=== PATIENT | female | born 1985 | race Two or more races ===

== ENCOUNTER 2020-04-14 13:08 | Outpatient (REF) | payer MEDICAID, SELFPAY | END 2020-04-14 13:09 | disposition home or self-care (01) | LOC: HO.LAB 13:08 | PROVIDERS: Visit Provider Internal Medicine | DX: Z20.828 Contact with and (suspected) exposure to other viral communicable diseases (principal) | CPT/HCPCS: C9803; U0003 ==

== ENCOUNTER 2024-06-27 11:56 | Outpatient (REF) | payer MEDICAID, SELFPAY ==
[2024-06-27 13:37] LABS: MANUAL DIFF FLAG NO
[2024-06-27 13:53] LABS: Basophils Percent Auto 0.3 % (0-2); Eosinophils Absolute Auto 0.3 X10*3/uL (0.0-0.4); Eosinophils Percent Auto 3.5 % (0-4); Hematocrit 34.8 % (37.0-47.0); Imm Gran Abs Auto 0.03 X10*3/uL (0.00-0.03); Imm Gran Pct Auto 0.4 % (0.0-0.4); Lymphocytes Absolute Auto 1.5 X10*3/uL (1.2-4.9); Lymphocytes Percent Auto 19.8 % (20-40); Mean Corpuscular HGB Conc 28.7 g/dl (31.0-35.0); Mean Corpuscular Hemoglobin 21.5 pg (27.0-33.0); Mean Corpuscular Volume 74.7 fL (80.0-98.0); Mean Platelet Volume 10.2 fL (9.4-12.3); Monocytes Absolute Auto 0.5 X10*3/uL (0.1-1.2); Monocytes Percent Auto 7.4 % (2-11); Neutrophils Percent Auto 68.6 % (45-73); Platelet Count 354 X10*3/uL (160-400); Red Blood Count 4.66 X10*6/uL (4.20-5.50); Red Cell Distribution Width 15.9 % (11.0-16.0); White Blood Count 7.3 X10*3/uL (4.8-10.8)
--- OUTSIDE RECORDS SUMMARY | 2024-06-27 14:15 | XMS_ITS | Clinical Summary ---
[facility] Organization [facility] Address [address] [place] [address] Care Team Providers Care Technical Training Specialist Name Role Phone Unavailable Primary Care Provider Unavailabl e Social History Tobacco Use Types Packs/Day Years Used Date Smoking Tobacco: Never Assessed Comments Unknown Sex and Gender Information Value Date Recorded Sex Assigned at Not on file Legal Sex Female 4:57 AM EST Gender Identity Not on file Sexual Orientation Not on file Plan of Treatment Health Maintenance Due Date Last Done Comments Breast Cancer Screening 1983 DTaP,Tdap,and Td Vaccines (1 - Tdap) 2002 Hepatitis B Vaccines (1 of 3 - 19+ 3-dose series) 2002 Cervical Cancer Screening: P ap Smear 02/05/2004 Depression Screening 04/02/2022 HIV Screening 04/02/2022 Hepatitis C Screening 04/02/2022 Social Influencers of Health Screening 04/02/2022 COVID-19 Vaccine (2023-2 5 season) 2023 Influenza Vaccine (#1) 2023 HIB Vaccines Aged Out No longer eligi ble based on patient's age to complete this topic HPV Vaccines Aged Out No longer eligi ble based on patient's age to complete this topic Hepatitis A Vaccines Aged Out No long er eligible based on patient's age to complete this topic IPV Vaccines Aged Out No longer eligi ble based on patient's age to complete this topic MMR Vaccines Aged Out No longer eligi ble based on patient's age to complete this topic Meningococcal ACWY Vaccine Aged Out N o longer eligible based on patient's age to complete this topic Meningococcal B Vacine Aged Out No lo nger eligible based on patient's age to complete this topic Pneumococcal Vaccine: Pediat rics (0 to 5 Years) and At-Risk Patients (6 to 64 Years) Aged Out No longer eligible b ased on patient's age to complete this topic RSV Immunization Patients Un carie 20 months Aged Out No longer eligible b ased on patient's age to complete this topic Varicella Vaccines Aged Out No longer eligible based on patient's age to complete this topic
--- OUTSIDE RECORDS SUMMARY | 2024-06-27 14:15 | XMS_ITS | Patient Health Record ---
Author Organization [facility] Address [address], [place] [id number] Care Team Providers Care Auto Service Dispatcher Name Role Phone [facility] Primary Care Provider Karis raulilable Jose Manuel Clemens Unavailable [phone] Reason For Referral No Information Plan Of Treatment No Information Insurance Providers Payer Name Payer Address Payer Phone Subscriber Number Group Number Insured Name Patient Relationship to Insured Coverage Start Date Coverage End Date [place] Medicaid Standard [address] [place] [address] [phone] Halina Martin Self - patient is the insured
--- OUTSIDE RECORDS SUMMARY | 2024-06-27 14:15 | XMS_ITS | Clinical Summary ---
Author Organization [facility] Address [address] [place] [address] Care Team Providers Care Insurance Sales Manager Name Role Phone Unavailable Primary Care Provider Unavailabl e Source Comments PLEASE NOTE, if this patient is a minor, it may be UNLAWFUL to discuss sensitive information that is contained in these records (such as FAMILY PLANNING, MENTAL HEALTH or SUBSTANCE ABUSE) with the minor patient's parent or other person without the patient's specific authorization.[facility] Allergies No known active allergies Medications ferrous sulfate 325 mg (65 mg iron) tabletIndication s:Iron deficiency anemia, unspecified iron deficiency anemia type Take 1 Tab by mouth 2 (two) times daily with a meal Twice every other day if stomach upset occurs 60 Tab 3 9 Active ibuprofen 600 mg tabletIndication s:Toothache Take 1 Tab by mouth 3 (three) times daily as needed for pain Take three times a day for 7 days after that as needed for pain 30 Tab 9 Active famotidine (PEPCID) 40 mg tabletIndication s:Heartburn Take 1 Tab by mouth once daily 30 Tab 2 9 Active polyethylene glycol 3350 17 gram/dose powderIndication s:Constipation, unspecified constipation type Take 17 g by mouth once daily 510 g 1 9 Active cholecalciferol, vitamin D3, 50 mcg (2,000 unit) capsuleIndicatio ns:History of vitamin D deficiency Take 1 Cap by mouth once daily 90 Cap 3 0 Active cyclobenzaprine (FLEXERIL) 10 mg tabletIndication s:Nocturnal leg cramps Take 1 Tab by mouth nightly at bedtime 30 Tab 1 0 Active fluticasone propion-salmeter oL (ADVAIR) 250-50 mcg/dose diskus inhalerIndicatio ns:Moderate persistent asthma without complication Inhale 1 Puff into the lungs 2 (two) times daily 60 Each 5 0 Active PROAIR HFA 90 mcg/actuation inhalerIndicatio ns:Moderate persistent asthma without complication Inhale 2 Puffsinto the lungs every 4 to 6 (four to six) hours as needed for shortness of breath or wheezing 18 g 2 1 Active sertraline (ZOLOFT) 50 mg tabletIndication s:anxiety with depression Take 1 Tablet by mouth once daily Indications: anxiousness associated with depression 30 Tablet 2 1 Active Active Problems Problem Noted Date Diagnosed Date Moderate persistent asthma without complication 07/12/2019 History of vitamin D deficiency 07/12/2019 Chronic gastritis without bleeding 07/12/2019 Insomnia due to other mental disorder 03/29/2019 Heartburn 03/29/2019 Multiple joint pain 03/29/2019 Overview (03/29/2019): Negative RF in Constipation 03/29/2019 Vitamin D deficiency 03/29/2019 Severe episode of recurrent major depressive disorder, without psychotic features ([facility]) 12/17/2018 PTSD (post-traumatic stress disorder) 12/17/2018 History of Papanicolaou smear of cervix 10/24/19 19 Overview (10/23/2018): Negative for squamous intraepithelial lesion and malignancy Negative for high risk HPV assay Collection date: 09/30/2018 Immunizations Name Administration Dates Next Due Flu, Preservative Free 03/24/2019 PNEUMOCOCCAL POLYSACCHARIDE PPV23 07/11/2019 TDAP 07/23/2018 Family History Medical History Relation Name Comments Diabetes Brother Thyroid Disease Brother Diabetes Paternal Grandmother Hypertension Paternal Grandmother Relation Name Status Comments Brother Paternal Grandmother Social History Tobacco Use Types Packs/Day Years Used Date Smoking Tobacco: Never Smokeless Tobacco: Never Alcohol Use Standard Drinks/Week Comments Yes 0 (1 standard drink = 0.6 oz pur e alcohol) occasionally Social Connections Answer Date Recorded Connectedness 0 01/06/2024 Financial Resource Strain Answer Date R ecorded Financial Resource Strain 0 2018 Stress Answer Date Recorded Stress 0 12/17/2018 Physical Activity Answer Date Recorded Physical Activity 0 12/17/2018 Food Insecurity Answer Date Recorded Food 0 01/24/2024 Transportation Needs Answer Date Record ed Transportation 0 12/17/2018 Housing Stability Answer Date Recorded Housing 0 12/17/2018 Safety and Environment Answer Date Heath rded Safety 0 08/17/2020 Utilities Answer Date Recorded Utilities 0 12/17/2018 Employment Answer Date Recorded Employment 0 12/17/2018 Comments No Sex and Gender Information Value Date Recorded Sex Assigned at Female 07/23/2018 12:18 PM PDT Legal Sex Female 1:20 PM PST Gender Identity Female 07/23/2018 12:18 PM PDT Sexual Orientation Straight 07/23/2018 12 :18 PM PDT Last Filed Vital Signs Vital Sign Reading Time Taken Comments Blood Pressure 120/74 07/11/2019 1:09 PM EDT Pulse 88 07/11/2019 1:09 PM EDT Temperature 36.8 ??C (98.3 ??F) 07/11/2019 1:09 PM ED T Respiratory Rate 16 07/11/2019 1:09 PM EDT Oxygen Saturation 99% 07/11/2019 1:09 PM EDT Inhaled Oxygen Concentration - - Weight 95.3 kg (210 lb) 07/11/2019 1:09 PM EDT Height 162.6 cm (5' 4 ) 07/11/2019 1:09 PM EDT Body Mass Index 36.05 07/11/2019 1:09 PM EDT Plan of Treatment Not on file Insurance [facility] [place] [id number]
--- OUTSIDE RECORDS SUMMARY | 2024-06-27 14:15 | XMS_ITS ---
Author Organization [facility] Address [address], [place] [id number] Care Team Providers Care Recreational Specialist Name Role Phone [facility] Primary Care Provider Karis vailable Jose Manuel Clemens Unavailable [phone] Encounters Encounter Location Date Provider Diagnosis [facility] [address] [place] [phone] 04/24/2023 Jose Manuel Clemens Plan Of Treatment No Information Progress Notes * ELIOMónicatatianaDOB:1984 (38 yo F)Acc No.[id number]:04/24/2023 Case Management Patient:?Mónica Ballardtatiana Provider:?Jose Manuel Loredo :1985???Age:38 Y???Sex:Female D ate:04/24/2023 Address:[address], [facility] Pcp:[facility] Subjective: * Chief Complaints: * ??? * HPI: ???Social Service:?Date of encounter?[id number].?Referral Source?walk-in, self, returning client.?Interpretation for medical provider? Certificate, [place].?Follow- up Required:?yes, Type of follow-up: CM.?Pt comprehension?Pt agrees with plan, Patient understood process and assisted with process.?Action taken (old)?Items given to client: none.? Client has difficulty getting a BC from [place]. Reach out the out of town collection clerk [facility]. Resend BC application with encarceration documents and sent an email to shipping receiving clerk's office about it. * Medical History:? Objective: Assessment: Plan: * Treatment: * Images: Billing Information: * Visit Code:? * Procedure Codes:? Care Plan Details* * Sign off status: Completed Addendum: * ? true * Provider:?Jose Manuel Loredo Date:?04/24/2023 Generated for Frannie anna/Arabella/Renetta on:?06/27/2024 02:15 PM EST History and Physical Notes * HPI (History of Present Illness) Category Sub-Category Detail Notes Social Service Referral Source walk-in, self, r eturning client Interpretation for medical provider Alli h Certificate, [place] ID Action taken (old) Items given to dilip t: none Follow-up Required: yes, Type of follow- up: CM Pt comprehension Pt agrees with plan, Patient understood process and assisted with process Date of encounter [id number]
[2024-06-27 14:17] LABS: Estimated Average Glucose 120 mg/dL; Hemoglobin A1C 101.2608 umol/L; Hemoglobin A1c % 5.8 % (<6.0); Total Hemoglobin (HGBA1C) 2514.6788 umol/L
[2024-06-27 14:32] LABS: Alanine Aminotransferase 13 U/L (0-31); Albumin Level 3.9 g/dL (3.5-5.0); Alkaline Phosphatase 63 U/L (39-117); Anion Gap 11 (12-20); Aspartate Amino Transferase 18 U/L (5-31); Bilirubin Total 0.2 mg/dL (0.0-1.0); Blood Urea Nitrogen 8 mg/dL (9-16); Calcium 8.8 mg/dL (8.4-10.2); Carbon Dioxide 27 mmol/L (22-29); Chloride 106 mmol/L (96-108); Cholesterol 124 mg/dL (<200); Estimated Glomerular Filt Rate > 60; Ferritin 3 ng/mL (10-250); Glucose Random 108 mg/dL (60-115); HDL Cholesterol 35 mg/dL (>40); Iron 14 mcg/dL (30-160); LDL Cholesterol Calculated 68 mg/dL (<100); Percent Iron Saturation 4 % (15-50); Sodium 140 mmol/L (135-145); Total Iron Binding Capacity 345 mcg/dL (228-428); Total Protein 7.8 g/dL (6.5-8.0); Triglycerides 107 mg/dL (<150); Unsaturated Iron Binding 331 ug/dL
[2024-06-30 08:46] LABS: HBS Num1 6.91 mIU/mL (0-7.99); HBc Num1 0.35 S/CO (0.00-0.79); HBsAGNum1 0.37 S/CO (0.00-0.99); HIV AB/AG Nonreactive (Nonreactive); HIV Num 1 0.05 S/CO (0.00-0.99); Hepatitis B Core Antibody Nonreactive (Nonreactive); Hepatitis B Surface Antigen Negative (Negative); ~HepC Num1 0.17 S/CO (0.00-0.79); ~Hepatitis B Surface Antibody NONREACTIVE (Nonreactive); ~Hepatitis C Antibody Nonreactive (Nonreactive)
[2024-06-30 09:18] LABS: Syphilis Screen Nonreactive (Nonreactive)
== END 2024-06-27 11:57 | disposition home or self-care (01) ==
LOC: HO.HHCL 11:56
PROVIDERS: Visit Provider Registered Nurse
DX: D64.9 Anemia, unspecified (principal); E66.811 Obesity, class 1; E66.09 Other obesity due to excess calories; Z68.34 Body mass index [BMI] 34.0-34.9, adult; Z11.3 Encounter for screening for infections with a predominantly sexual mode of transmission
CPT/HCPCS: 36415; 80053; 80061; 82728; 83036; 83540; 85025; 86704; 86706; 86780; 86803; 87340; 87389

== ENCOUNTER 2024-09-12 10:08 | Outpatient (REF) | payer MEDICAID, SELFPAY ==
--- OUTSIDE RECORDS SUMMARY | 2024-09-12 10:25 | XMS_ITS | Clinical Summary ---
Author Organization [facility] Address [address] [place] [address] Care Team Providers Care Trimmer Press Clippings Name Role Phone Viky Sin SOURCER Primary Care Provider [phone] Allergies No known active allergies Medications * This document contains information received from the source organization and may not represent a complete record from that organization. budesonide-formot kylah (Symbicort) 80-4.5 MCG/ACT inhalerIndication s:Mild persistent asthma without complication Inhale 2 puffs twie daily. Rinse mouth with water after use to reduce aftertaste and incidence of candidiasis. Do not swallow. 1 each 11 5 Active ferrous gluconate (Fergon) 324 (38 Fe) MG tabletIndications :Iron deficiency anemia due to chronic blood loss Take 1 tablet (324 mg) by mouth Once per day. 30 tablet 5 07/01/19 26 Active Active Problems No known active problems Encounters * This document contains information received from the source organization and may not represent a complete record from that organization. Date Type Department Care Team Description 08/21/2024 Telephone [facility] [address] [place] [address] Viky Sin FNP Chart prep 08/13/2024 Patient Outreach [facility] [address] [place] [address] Viky Sin FNP Pre-visit Planning (SDOH screening completed on 06/13/24) 07/11/2024 Population Health Risk Score [facility] (C3) Department [address] [id number] Provider, Population Health Generic 07/01/2024 Telephone [facility] [address] [place] [address] Viky Sin FNP Results 06/30/2024 Telephone [facility] [address] [place] [address] Tereza Swenson, RN Results 06/30/2024 Orders Only [facility] [address] [place] [address] Viky Sin, HITESH Iron deficiency anemia due to chronic blood loss (Primary Dx) 06/27/2024 10:30 AM EST Office Visit [facility] [place] [address] Viky Sin, SOURCER Anemia, unspecified type (Primary Dx); Mild persistent asthma without complication; Breast cancer screening by mammogram; Poor dentition requiring referral to dentistry; Class 1 obesity due to excess calories with body mass index (BMI) of 34.0 to 34.9 in adult, unspecified whether serious comorbidity present; Routine screening for STI (sexually transmitted infection); Dietary counseling; Exercise counseling 06/27/2024 Telephone [facility] [address] [place] [address] Tereza Swenson, RN Results 06/27/2024 Travel from Last 3 Months Social History Tobacco Use Types Packs/Day Years Used Date Smoking Tobacco: Never Smokeless Tobacco: Never Tobacco Cessation:Counseling Given: Not Answered Depression Answer Date Recorded Patient Health Questionnaire-9 Score 6 06/27/2024 Patient Health Questionnaire-9 Score 6 06/27/2024 Last PHQ-9: Questionnaire Data Not on file 0 06/27/2024 Housing Stability Answer Date Recorded What is your housing situation today? I have rona humphries 06/13/[address] you li ve. Do you have problems with any of the following? Pests such as bugs, ants, or mice 06/13/2024 Food Insecurity Answer Date Recorded Within the past 12 months, y ou worried that your food would run out before you got money to buy more: Never True 06/13/2024 Within the past 12 months,th e food you bought just didn't last and you didn't have enough money to get more: Never True Transportation Answer Date Recorded In the past 12 months, has l ack of transportation kept you from medical appts, meetings, work or from getting things needed for daily living? No 06/13/2024 Utilities Answer Date Recorded In the past 12 months, has t he electric, gas, oil or water company threatened to shut off services in your home? No 06/13/2024 Depression Answer Date Recorded Patient Health Questionnaire-2 Score 2 06/27/2024 Internet Access Answer Date Recorded Internet Access Q1 Yes 06/13/2024 Internet Access Q2 Not on file 06/13/2024 Comments Unknown Sex and Gender Information Value Date Recorded Sex Assigned at Female 11/27/2023 9:41 AM EDT Legal Sex Female 3:45 PM EDT Gender Identity Female 11/27/2023 9:41 AM EDT Sexual Orientation Don't know 11/27/2023 9: 43 AM EDT Last Filed Vital Signs Vital Sign Reading Time Taken Comments Blood Pressure 110/80 06/27/2024 11:26 AM EST Pulse 68 06/27/2024 10:31 AM EST Temperature 36.6 ??C (97.8 ??F) 06/27/2024 10:[address] Respiratory Rate 16 06/27/2024 10:31 AM EST Oxygen Saturation - - Inhaled Oxygen Concentration - - Weight 99.9 kg (220 lb 3.2 oz) 06/27/2024 10:31 AM EST Height 165.1 cm (5' 5 ) 06/27/2024 10:31 AM EST Body Mass Index 36.64 06/27/2024 10:31 AM EST Plan of Treatment Upcoming Encounters Date Type Department Care Team (Late st Contact Info) Description 10/20/2024 11:15 AM EDT Office Visit [facility] [address] [place] [address] [facility] [address] [place] [address] Health Maintenance Due Date Last Done Comments Alcohol/Substance Use Screening 1995 Family Planning (PISQ) 1998 DTaP/Tdap/Td Vaccines (1 - Tdap) 2002 Hepatitis B Vaccines (1 of 3 - 19+ 3-dose series) 2002 Pneumococcal Vaccine: Pediatrics (0 to 5 Years) and At-Risk Patients (6 to 49) Years) (1 of 2 - PCV) 2002 Pap Smear 02/05/2004 Cervical Cancer Screening 2013 HPV/Cotest 2013 Mammogram 2023 COVID-19 Vaccine (1 - 2023-2 5 season) 2023 Influenza Vaccine (#1) 2023 SDOH Screening 06/13/2025 06/13/2024 Depression Screening 06/27/2025 06/27/2024, 06/27/2024 Diabetes: Hemoglobin A1C 06/27/2025 06/27/2024 Tobacco Screening 06/27/2025 06/27/2024 Lipid Panel 06/27/2029 06/27/2024 Zoster Vaccines (1 of 2) 2033 RSV Patients and Patients Aged 60 years or older (1 - 1-dose 75+ series) 2058 HIV Screening Completed 06/27/2024 Hepatitis C Screening Completed 06/27/2024 HIB Vaccines Aged Out No longer eligi [...] age to complete this topic Meningococcal B Vaccine Aged Out No l onger eligible based on patient's age to complete this topic Meningococcal Vaccine Aged Out No maite dominic eligible based on patient's age to complete this topic RSV under 20 months Aged Out No longe r eligible based on patient's age to complete this topic Rotavirus Vaccines Aged Out No longer eligible based on patient's age to complete this topic Procedures Procedure Name Priority Date/Time Associated Diagnosis Comments HEPATITIS B SURFACE ANTIBODY, QUALITATIVE Routine 06/27/2024 11:58 AM EST Routine screening for STI (sexually transmitted infection) HEPATITIS B CORE AB TOTAL Routine 06/27/2024 11:58 AM EST Routine screening for STI (sexually transmitted infection) HEPATITIS B SURFACE ANTIGEN, EIA Routine 06/27/2024 11:58 AM EST Routine screening for STI (sexually transmitted infection) HEPATITIS C AB W/REFL TO HCV RNA, QN, PCR Routine 06/27/2024 11:58 AM EST Routine screening for STI (sexually transmitted infection) HIV 1/2 ANTIGEN/ANTIBODY, FOURTH GENERATION W/RFL Routine 06/27/2024 11:58 AM EST Routine screening for STI (sexually transmitted infection) SYPHILIS SCREEN Routine 06/27/2024 11:58 AM EST Routine screening for STI (sexually transmitted infection) LIPID PANEL, STANDARD Routine 06/27/2024 11:58 AM EST Class 1 obesity due to excess calories with body mass index (BMI) of 34.0 to 34.9 in adult, unspecified whether serious comorbidity present HEMOGLOBIN A1C Routine 06/27/2024 11:58 AM EST Class 1 obesity due to excess calories with body mass index (BMI) of 34.0 to 34.9 in adult, unspecified whether serious comorbidity present FERRITIN Routine 06/27/2024 11:58 AM EST Anemia, unspecified type IRON AND TOTAL IRON BINDING CAPACITY Routine 06/27/2024 11:58 AM EST Anemia, unspecified type CBC WITH AUTO DIFFERENTIAL Routine 06/27/2024 11:58 AM EST Anemia, unspecified type COMPREHENSIVE METABOLIC PANEL Routine 06/27/2024 11:58 AM EST Class 1 obesity due to excess calories with body mass index (BMI) of 34.0 to 34.9 in adult, unspecified whether serious comorbidity present from Last 3 Months Results * Syphilis Screen (06/27/2024 11:58 AM EST) Syphilis Screen Nonreactive Nonreactive [facility] Blood 06/27/2024 11:5 8 AM EST 06/27/2024 1:30 PM EST [facility] LAB BLOOD ORDERABLES Final Re sult [facility] [address] [place] [address] [phone] * (ABNORMAL) CBC auto differential (06/27/2024 11:58 AM EST) White Blood Count 7.3 4.8 - 10.8 X10*3/uL [facility] Red Blood Count 4.66 4.20 - 5.50 X10*6/uL [facility] Hemoglobin 10.0(L) 12.0 - 16.0 g/dl [facility] Hematocrit 34.8(L) 37.0 - 47.0 % [facility] Mean Corpuscular Volume 74.7(L) 80.0 - 98.0 fL [facility] Mean Corpuscular Hemoglobin 21.5(L) 27.0 - 33.0 pg [facility] Mean Corpuscular HGB Conc 28.7(L) 31.0 - 35.0 g/dl [facility] Red Cell Distribution Width 15.9 11.0 - 16.0 % [facility] Platelet Count 354 160 - 400 X10*3/uL [facility] Mean Platelet Volume 10.2 9.4 - 12.3 fL [facility] Neutrophils Percent Auto 68.6 45 - 73 % [facility] Imm Gran Pct Auto 0.4 0.0 - 0.4 % [facility] Lymphocytes Percent Auto 19.8(L) 20 - 40 % [facility] Monocytes Percent Auto 7.4 2 - 11 % [facility] Eosinophils Percent Auto 3.5 0 - 4 % [facility] Basophils Percent Auto 0.3 0 - 2 % [facility] NRBC Pct Auto 0.0 0.0 - 0.2 /100WBC [facility] Neutrophils Absolute Auto 5.0 2.0 - 8.3 x10*3/uL [facility] Imm Gran Abs Auto 0.03 0.00 - 0.03 X10*3/uL [facility] Lymphocytes Absolute Auto 1.5 1.2 - 4.9 X10*3/uL [facility] Monocytes Absolute Auto 0.5 0.1 - 1.2 X10*3/uL [facility] Eosinophils Absolute Auto 0.3 0.0 - 0.4 X10*3/uL [facility] Basophils Absolute Auto 0.0 0.0 - 0.2 X10*3/uL [facility] NRBC Abs Auto 0.000 0.0 - 0.012 X10*3/uL [facility] Blood Venous blood specimen / Unknown 06/27/2024 11:58 AM EST 06/27/2024 1:30 PM EST [facility] LAB BLOOD ORDERABLES Final Re sult Performing Organization Address [facility] Co de Phone Number [facility] [address] [place] [phone] * Hepatitis C Antibody with Reflex to HCV, RNA, Quantitative, Real-Time PCR (06/27/2024 11:58 AM EST) Pathologist [facility] Hepatitis C Antibody Nonreactive Nonreactive [facility] Comment:Antibodies to HCV no t detected; does not exclude early acuteHCV infection. Blood Venous blood specimen / Unknown 06/27/2024 11:58 AM EST 06/27/2024 1:30 PM EST [facility] LAB BLOOD ORDERABLES Final Re sult Performing Organization Address [facility] Co de Phone Number [facility] [address] [place] [phone] * (ABNORMAL) Iron And Total Iron Binding Capacity (06/27/2024 11:58 AM EST) Iron 14(L) 30 - 160 mcg/dL [facility] Total Iron Binding Capacity 345 228 - 428 mcg/dL [facility] Percent Iron Saturation 4(L) 15 - 50 % [facility] Unsaturated Iron Binding 331 ug/dL [facility] Blood Venous blood specimen / Unknown 06/27/2024 11:58 AM EST 06/27/2024 1:30 PM EST [facility] LAB BLOOD ORDERABLES Final Re sult Performing Organization Address [facility] Co de Phone Number [facility] [address] [place] [phone] * Hepatitis B surface antigen, EIA (06/27/2024 11:58 AM EST) Hepatitis B Surface Ag Negative Negative [facility] Blood Venous blood specimen / Unknown 06/27/2024 11:58 AM EST 06/27/2024 1:30 PM EST [facility] LAB BLOOD ORDERABLES Final Re sult Performing Organization Address [facility] Co de Phone Number [facility] [address] [place] [phone] * Hepatitis B Core Antibody, Total (06/27/2024 11:58 AM EST) Hepatitis B Core Antibody Nonreactive Nonreactive [facility] Blood Venous blood specimen / Unknown 06/27/2024 11:58 AM EST 06/27/2024 1:30 PM EST [facility] LAB BLOOD ORDERABLES Final Re sult Performing Organization Address [facility] de Phone Number [facility] [address] [place] [phone] * HIV-1/2 Antigen and Antibodies, Fourth Generation, with Reflexes (06/27/2024 11:58 AM EST) HIV AB/AG Nonreactive Nonreactive [facility] Comment:HIV-1 p24 Ag and/or HIV-1/HIV-2 Ab not detected.A test result that is nonreactive does not exclude thepossibility of exposure to or infection with HIV-1 and/orHIV-2. Nonreactive results in this assay for individualswith prior exposure to HIV-1 and/or HIV-2 may be due toantigen and antibody levels that are below the limit ofdetection of this assay.The PicPrizesniCapricor HIV Ag/Ab Combo assay result andsupplemental assay results should be interpreted inconjunction with the patient's clinical presentation,history and other laboratory results. If the results areinconsistent with clinical evidence, additional testing issuggested to confirm the result. Blood Venous blood specimen / Unknown 06/27/2024 11:58 AM EST 06/27/2024 1:30 PM EST [facility] LAB BLOOD ORDERABLES Final Re sult Performing Organization Address [facility]/ZIP Co de Phone Number [facility] [address] [place] [phone] * Hepatitis B Surface Antibody, Qualitative (06/27/2024 11:58 AM EST) ~Hepatitis B Surface Antibody NONREACTIVE Nonreactive [facility] Comment:Nonreactive: < 8.00 mIU/mL Blood Venous blood specimen / Unknown 06/27/2024 11:58 AM EST 06/27/2024 1:30 PM EST [facility] LAB BLOOD ORDERABLES Final Re sult Performing Organization Address [facility] Co de Phone Number [facility] [address] [place] [phone] * Hemoglobin A1c (06/27/2024 11:58 AM EST) Hemoglobin A1c 5.8 <6.0 % [facility] Comment:Hemoglobin A1C Refer ence Range Adults: 4.8 - 6.0 % Non diabetic: < 6.0 % Goal: < 7.0 %Additional Action Suggested: > 8.0 %Note: Hemoglobin A1c results are invalid for patients with abnormal amounts of HbF. Blood transfusions may impact the HbA1c concentration in the patient sample. Estimated Average Glucose 120 mg/dL [facility] Comment:eAG = Estimated ave rage glucose which is %A1C expressed asaverage glucose, using the formula of the G8H-[id number] Glucose study (ADAG), Diabetes Care, Vol.31,#8,2007 Blood Venous blood specimen / Unknown 06/27/2024 11:58 AM EST 06/27/2024 1:30 PM EST [facility] LAB BLOOD ORDERABLES Final Re sult Performing Organization Address City/[facility]/ZIP Co de Phone Number [facility] [address] [place] [phone] * (ABNORMAL) Ferritin (06/27/2024 11:58 AM EST) Ferritin 3(L) 10 - 250 ng/mL [facility] Blood Venous blood specimen / Unknown 06/27/2024 11:58 AM EST 06/27/2024 1:30 PM EST [facility] LAB BLOOD ORDERABLES Final Re sult Performing Organization Address [facility] Co de Phone Number [facility] [address] [place] [phone] * (ABNORMAL) Lipid Panel, Standard (06/27/2024 11:58 AM EST) Triglycerides 107 <150 mg/dL [facility] Comment:Desirable Triglyceri de: less than 150 mg/dLBorderline High Triglyceride 150-199 mg/dLHigh Triglyceride: 200-499 mg/dLVery High Triglyceride: greater than or equal to 5OO mg/dL Cholesterol 124 <200 mg/dL [facility] Comment:Desirable Cholestero l: less than 200 mg/dLBorderline High Cholesterol: 200-239 mg/dLHigh Cholesterol: greater than 239 mg/dL LDL Cholesterol Calculated 68 <100 mg/dL [facility] Comment:Desirable LDL: less than 100 mg/dLNear Optimal/Above Optimal LDL: 110- 129 mg/dLBorderline High LDL: 130-159 mg/dLHigh LDL: 160-189 mg/dLVery High LDL: greater than or equal to 190 mg/dL HDL Cholesterol 35(L) >40 mg/dL [facility] Comment:Desirable HDL: great er than 40 mg/dL Note: This HDL assay may give artificially low results in patients with liver disease. Blood Venous blood specimen / Unknown 06/27/2024 11:58 AM EST 06/27/2024 1:30 PM EST [facility] LAB BLOOD ORDERABLES Final Re sult [facility] [address] [place], [place] [phone] * (ABNORMAL) Comprehensive Metabolic Panel (06/27/2024 11:58 AM EST) Sodium 140 135 - 145 mmol/L [facility] Potassium 4.0 3.3 - 5.1 mmol/L [facility] Chloride 106 96 - 108 mmol/L [facility] Carbon Dioxide 27 22 - 29 mmol/L [facility] Anion Gap 11(L) 12 - 20 [facility] Urea Nitrogen (BUN) 8(L) 9 - 16 mg/dL [facility] Creatinine, Serum 0.78 0.5 - 1.4 mg/dL [facility] Estimated Glomerular Filt Rate >60 [facility] Comment:Chronic Kidney Disea se: Estimated GFR < 60 mL/min/1.64u4Obaknf Kidney Disease: Estimated GFR < 15 mL/min/1.73m2 Glucose 108 60 - 115 mg/dL [facility] Calcium 8.8 8.4 - 10.2 mg/dL [facility] Bilirubin, Total 0.2 0.0 - 1.0 mg/dL [facility] Aspartate Amino Transferase 18 5 - 31 U/L [facility] Alanine Aminotransferase 13 0 - 31 U/L [facility] Total Protein 7.8 6.5 - 8.0 g/dL [facility] Albumin Level 3.9 3.5 - 5.0 g/dL [facility] Alkaline Phosphatase 63 39 - 117 U/L [facility] Blood Venous blood specimen / Unknown 06/27/2024 11:58 AM EST 06/27/2024 1:30 PM EST [facility] LAB BLOOD ORDERABLES Final Re sult [facility] [address] [place] [address] [phone] from Last 3 Months Insurance [facility] C3 Care Teams Trimmer Press Clippings Relationship Specialty Start Date End Date DumontViky FNP [address] [place] [address] PCP - General Family Medicine 06/27/24
--- OUTSIDE RECORDS SUMMARY | 2024-09-12 10:25 | XMS_ITS | Clinical Summary ---
[facility] Organization [facility] Address [address] [place] [address] Care Team Providers Care Warp Knitter Helper Name Role Phone Unavailable Primary Care Provider [...] Vaccine (2023-2 5 season) 2023 Influenza Vaccine (Season Ended) 2024 HIB Vaccines Aged Out No longer eligi [...]
--- OUTSIDE RECORDS SUMMARY | 2024-09-12 10:25 | XMS_ITS | Clinical Summary ---
Author Organization [facility] Address [address] [place] [address] Care Team Providers Care Senior Report Developer Name Role Phone Unavailable Primary Care Provider [...] diskus inhalerIndicatio ns:Moderate persistent asthma without complication ([facility]) Inhale 1 Puff into the lungs 2 (two) times daily 60 Each 5 0 Active PROAIR HFA 90 mcg/actuation inhalerIndicatio ns:Moderate persistent asthma without complication ([facility]) Inhale 2 Puffsinto the lungs every 4 to 6 (four to six) hours as needed for shortness of breath or wheezing 18 g 2 1 Active sertraline (ZOLOFT) 50 mg tabletIndication s:anxiety with depression Take 1 Tablet by mouth once daily Indications: anxiousness associated with depression 30 Tablet 2 1 Active Active Problems Problem Noted Date Diagnosed Date Moderate persistent asthma without complication ([facility]) 07/12/2019 History of vitamin D deficiency 07/12/2019 Chronic gastritis without bleeding 07/12/2019 Insomnia due to other mental disorder 03/29/2019 Heartburn 03/29/2019 Multiple joint pain 03/29/2019 Overview (03/29/2019): Negative RF in Constipation 03/29/2019 Vitamin D deficiency 03/29/2019 Severe episode of recurrent major depressive disorder, without psychotic features ([facility]) 12/17/2018 PTSD (post-traumatic stress disorder) 12/17/2018 History of Papanicolaou smear of cervix 10/24/19 19 Overview (10/23/2018): Negative for squamous intraepithelial lesion and malignancy Negative for high risk HPV assay Collection date: 09/30/2018 Immunizations Immunization Administration Dates Next Due Flu, Preservative Free 03/24/2019 PNEUMOCOCCAL POLYSACCHARIDE PPV23 (Pneumovax 23) 07/11/2019 TDAP 07/23/2018 Family History Medical History [...] Plan of Treatment Not on file Insurance [facility] [place] MEDICAID DENTAL [facility] [place] [address]
--- OUTSIDE RECORDS SUMMARY | 2024-09-12 10:26 | XMS_ITS | Patient Health Record ---
Author Organization [facility] Address [address], [place] [id number] Care Team Providers Care Service Cleaner Name Role Phone [facility] Primary Care Provider Karis raulilable Jose Manuel Clemens Unavailable [phone] Reason For Referral No Information Plan Of Treatment No Information Insurance Providers Payer Name Payer Address Payer Phone Subscriber Number Group Number Insured Name Patient Relationship to Insured Coverage Start Date Coverage End Date [place] Medicaid Standard [address] [place] [phone] Halina Martin Self - patient is the insured
== END 2024-09-12 10:09 | disposition home or self-care (01) ==
LOC: HO.MAMMO 10:08
PROVIDERS: PCP Registered Nurse; Visit Provider Registered Nurse
DX: Z12.31 Encounter for screening mammogram for malignant neoplasm of breast (principal)
CPT/HCPCS: 77063; 77067

== ENCOUNTER → 2024-09-12 10:30 | Outpatient (BNV) | payer MEDICAID, SELFPAY | PROVIDERS: PCP Registered Nurse; Visit Provider Internal Medicine | DX: Z12.31 Encounter for screening mammogram for malignant neoplasm of breast (principal) | CPT/HCPCS: 77063; 77067 ==

== ENCOUNTER 2024-10-20 12:11 | Outpatient (REF) | payer MEDICAID, SELFPAY ==
[2024-10-20 12:58] LABS: MANUAL DIFF FLAG NO
[2024-10-20 13:09] LABS: Basophils Percent Auto 0.3 % (0-2); Eosinophils Absolute Auto 0.2 X10*3/uL (0.0-0.4); Hematocrit 30.6 % (37.0-47.0); Hemoglobin 8.5 g/dl (12.0-16.0); Imm Gran Abs Auto 0.04 X10*3/uL (0.00-0.03); Imm Gran Pct Auto 0.4 % (0.0-0.4); Lymphocytes Absolute Auto 1.4 X10*3/uL (1.2-4.9); Lymphocytes Percent Auto 15.9 % (20-40); Mean Corpuscular HGB Conc 27.8 g/dl (31.0-35.0); Mean Corpuscular Hemoglobin 19.5 pg (27.0-33.0); Mean Corpuscular Volume 70.3 fL (80.0-98.0); Monocytes Absolute Auto 0.7 X10*3/uL (0.1-1.2); Monocytes Percent Auto 7.4 % (2-11); Neutrophils Absolute Auto 6.7 x10*3/uL (2.0-8.3); Platelet Count 309 X10*3/uL (160-400); Red Blood Count 4.35 X10*6/uL (4.20-5.50); Red Cell Distribution Width 16.8 % (11.0-16.0)
--- OUTSIDE RECORDS SUMMARY | 2024-10-20 13:36 | XMS_ITS | Clinical Summary ---
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 ferrous gluconate (Fergon) 324 (38 Fe) MG tabletIndicatio ns:Iron deficiency anemia due to chronic blood loss Take 1 tablet (324 mg) by mouth Once per day. 30 tablet 10/21/19 25 026 Active budesonide-form oterol (Symbicort) 80-4.5 MCG/ACT inhalerIndicati ons:Mild persistent asthma without complication Inhale 2 puffs twie daily. Rinse mouth with water after use to reduce aftertaste and incidence of candidiasis. Do not swallow. 1 each 10/21/19 25 Active budesonide-form oterol (Symbicort) 80-4.5 MCG/ACT inhalerIndicati ons:Mild persistent asthma without complication Inhale 2 puffs twie daily. Rinse mouth with water after use to reduce aftertaste and incidence of candidiasis. Do not swallow. 1 each 06/27/19 025 Discontinued(R eorder (will not trigger notification to Pharmacy)) ferrous gluconate (Fergon) 324 (38 Fe) MG tabletIndicatio ns:Iron deficiency anemia due to chronic blood loss Take 1 tablet (324 mg) by mouth Once per day. 30 tablet 07/01/19 025 Discontinued(R eorder (will not trigger notification to Pharmacy)) Active Problems No known active problems Encounters Date Type Department Care Team Description 10/20/2024 11:15 AM EDT Office Visit [facility] [address] [place], [place] [address] [address] [place], BLANKET MAKER Iron deficiency anemia due to chronic blood loss; Mild persistent asthma without complication; Encounter for immunization 10/20/2024 Travel 10/17/2024 Telephone [facility] [address] [place] [address] Viky Sin FNP CHART PREP 08/21/2024 Telephone [facility] [place] [address] [place] F[place] Chart prep 08/13/2024 Patient Outreach [facility] [address] [facility] [place] [address] [place] F[place] Pre-visit Planning ([facility] screening completed on 06/13/24) from Last 3 Months Immunizations Immunization Administration Dates Next Due Pneumococcal Conjugate PCV 20 10/20/2024 Tdap 10/20/2024 Family History Medical History Relation Name Comments Diabetes Mother Hypertension Mother Relation Name Status Comments Mother Social History Tobacco Use Types Packs/Day Years Used Date Smoking Tobacco: Never Smokeless Tobacco: Never Tobacco Cessation:Counseling Given: Not Answered Alcohol Use Standard Drinks/Week Comments Never 0 (1 standard drink = 0.6 oz pur e alcohol) Depression Answer Date Recorded Patient Health Questionnaire-9 Score 5 10/20/2024 Patient Health Questionnaire-9 Score 5 10/20/2024 Last PHQ-9: Questionnaire Data Not on file 0 10/20/2024 Housing Stability Answer Date Recorded What is your housing situation today? I have rona humphries 10/20/[address] you li ve. Do you have problems with any of the following? None of the above 10/20/2024 Food Insecurity Answer Date Recorded Within the [...] Date Recorded Patient Health Questionnaire-2 Score 2 10/20/2024 Internet Access Answer Date Recorded Internet Access [...] Sign Reading Time Taken Comments Blood Pressure 110/58 10/20/2024 11:33 AM EDT Pulse 64 10/20/2024 11:33 AM EDT Temperature 37.1 C (98.7 F) 10/20/2024 11:33 AM EDT Respiratory Rate 14 10/20/2024 11:33 AM EDT Oxygen Saturation - - Inhaled Oxygen Concentration - - Weight 98.5 kg (217 lb 2 oz) 10/20/2024 11:33 AM EDT Height 165.1 cm (5' 5 ) 06/27/2024 10:31 AM EST Body Mass Index 36.13 06/27/2024 10:31 AM EST Plan of Treatment Health Maintenance Due Date Last Done Comments Family Planning (PISQ) 1998 Hepatitis B Vaccines (1 of 3 - 19+ 3-dose series) 2002 Pap Smear 02/05/2004 Cervical Cancer Screening 2013 HPV/Cotest 2013 COVID-19 Vaccine ( - 2023-2 5 season) 2023 Influenza Vaccine (Season Ended) 2024 Diabetes: Hemoglobin A1C 06/27/2025 06/27/2024 Alcohol/Substance Use Screening 10/20/2025 10/20/2024 Depression Screening 10/20/2025 10/20/2024, 10/20/2024 Disability Screening 10/20/2025 10/20/2024 SDOH Screening 10/20/2025 10/20/2024 Tobacco Screening 10/20/2025 10/20/2024 Mammogram 09/12/2026 09/12/2024 Lipid Panel 06/27/2029 06/27/2024 Zoster Vaccines (1 of 2) 2033 DTaP/Tdap/Td Vaccines (2 - T d or Tdap) 10/20/2034 10/20/2024 RSV Patients and Patients Aged 60 years or older (1 - 1-dose 75+ series) 2058 HIV Screening Completed 06/27/2024 Hepatitis C Screening Completed 06/27/2024 Pneumococcal Vaccine: Pediatrics (0 to 5 Years) and At-Risk Patients (6 to 49) Years Completed 10/20/2024 HIB Vaccines Aged Out No longer eligi [...] Procedure Name Priority Date/Time Associated Diagnosis Comments CBC WITH AUTO DIFFERENTIAL Routine 10/20/2024 12:16 PM EDT Iron deficiency anemia due to chronic blood loss BI MAMMOGRAM SCREENING TOMOSYNTHESIS BILATERAL Routine 09/12/2024 10:15 AM EDT Breast cancer screening by mammogram HEPATITIS C AB W/REFL TO HCV RNA, QN, PCR Routine 06/27/2024 11:58 AM EST Routine screening for STI (sexually transmitted infection) HIV 1/2 ANTIGEN/ANTIBODY, FOURTH GENERATION W/RFL Routine 06/27/2024 11:58 AM EST Routine screening for STI (sexually transmitted infection) HEMOGLOBIN A1C Routine 06/27/2024 11:58 AM EST Class 1 obesity due to excess calories with body mass index (BMI) of 34.0 to 34.9 in adult, unspecified whether serious comorbidity present LIPID PANEL, STANDARD Routine 06/27/2024 11:58 AM EST Class 1 obesity due to excess calories with body mass index (BMI) of 34.0 to 34.9 in adult, unspecified whether serious comorbidity present from Last 3 Months or Most Recently Relevant to Health Maintenance Results * (ABNORMAL) CBC auto differential (10/20/2024 12:16 PM EDT) White Blood Count 9.0 4.8 - 10.8 X10*3/uL [facility] Red Blood Count 4.35 4.20 - 5.50 X10*6/uL [facility] Hemoglobin 8.5(L) 12.0 - 16.0 g/dl [facility] Hematocrit 30.6(L) 37.0 - 47.0 % [facility] Mean Corpuscular Volume 70.3(L) 80.0 - 98.0 fL [facility] Mean Corpuscular Hemoglobin 19.5(L) 27.0 - 33.0 pg [facility] Mean Corpuscular HGB Conc 27.8(L) 31.0 - 35.0 g/dl [facility] Red Cell Distribution Width 16.8(H) 11.0 - 16.0 % [facility] Platelet Count 309 160 - 400 X10*3/uL [facility] Mean Platelet Volume 10.0 9.4 - 12.3 fL [facility] Neutrophils Percent Auto 74.0(H) 45 - 73 % [facility] Imm Gran Pct Auto 0.4 0.0 - 0.4 % [facility] Lymphocytes Percent Auto 15.9(L) 20 - 40 % [facility] Monocytes Percent Auto 7.4 2 - 11 % [facility] Eosinophils Percent Auto 2.0 0 - 4 % [facility] Basophils Percent Auto 0.3 0 - 2 % [facility] NRBC Pct Auto 0.0 0.0 - 0.2 /100WBC [facility] Neutrophils Absolute Auto 6.7 2.0 - 8.3 x10*3/uL [facility] Imm Gran Abs Auto 0.04(H) 0.00 - 0.03 X10*3/uL [facility] Lymphocytes Absolute Auto 1.4 1.2 - 4.9 X10*3/uL [facility] Monocytes Absolute Auto 0.7 0.1 - 1.2 X10*3/uL [facility] Eosinophils Absolute Auto 0.2 0.0 - 0.4 X10*3/uL [facility] Basophils Absolute Auto 0.0 0.0 - 0.2 X10*3/uL [facility] NRBC Abs Auto 0.000 0.0 - 0.012 X10*3/uL [facility] Blood Venous blood specimen / Unknown 10/20/2024 12:16 PM EDT 10/20/2024 12:50 PM EDT Viky Sin BLANKET MAKER LAB BLOOD ORDERABLES Final Re sult [facility] [address] [place] [address] [phone] * BI Mammogram Screening Tomosynthesis Bilateral (09/12/2024 10:15 AM EDT) Anatomical Region Laterality Modality Breast Bilateral Mammography 09/12/2024 10:1 5 AM EDT Narrative 09/20/2024 12:53 PM EDT [facility] [address] [place] [address] Mammography Report Signed Patient: Halina Ballard MR#: [id number] : 1985 Acct:[id number] Age/Sex: 39 / F ADM Date: 09/12/24 Loc: [facility] Attending Dr: Viky PROCTOR Ordering Physician: Viky Sin Results: 1Nega tive Date of Service: 09/12/24 Follow Up: 1 Year From Orig inal Mammogram Procedure(s): MM tomosynthesis screening BI Accession Number(s): [id number] cc: [place],Viky BLANKET MAKER EXAMINATION: MM SCREENING DIGITAL BREAST TOMOSYNTHESIS, BILATERAL CLINICAL INFORMATION: Screening. Asymptomatic. COMPARISON: Mammography: Baseline. TECHNIQUE: Digital breast mammography with tomosynthesis is performed in both the craniocaudal and mediolateral oblique views along with computer-aided detection (CAD). FINDINGS: There are scattered areas of fibroglandular density (ACR BI-RADS breast composition Category b). There are no significant masses, abnormal calcifications, or other abnormalities. MM/MM tomosynthesis screening BI IMPRESSION: No mammographic evidence of malignancy. ASSESSMENT: BI-RADS BI-RADS 1 - Negative RECOMMENDATION: Routine annual mammography screening. 1 year F/U This examination should not preclude the clinical evaluation of a suspicious palpable abnormality. This patient's information was entered into a reminder system with a target due date for their next mammogram. Electronically signed by: Maureen Fiore DO 09/20/2024 12:51 PM EDT RP Dictated By: Maureen Fiore DO Signed By: <Electronically signed by Maureen Fiore DO in OV> 09/20/24 1251 DD/ 1015 TD/TT: 09/12/24 1037 Harness Maker: Procedure Note Donotuseinterpreter, Image - 09/20/2024 [facility] [address] [place], [place] [address] Mammography Report Signed Patient: Halina Ballard#: [id number] : 1985Acct:[id number] Age/Sex: 39 / FADM Date: 09/12/24 Loc: [facility] Attending Dr: Viky Sin BLANKET MAKER Ordering Physician: Viky Sin FNPResults: 1Nega tive Date of Service: 09/12/24Follow Up: 1 Year From Orig inal Mammogram Procedure(s): MM tomosynthesis screening BI Accession Number(s): [id number] cc: Viky Sin BLANKET MAKER EXAMINATION: MM SCREENING DIGITAL BREAST TOMOSYNTHESIS, BILATERAL CLINICAL INFORMATION: Screening. Asymptomatic. COMPARISON: Mammography: Baseline. TECHNIQUE: Digital breast mammography with tomosynthesis is performed in both the craniocaudal and mediolateral oblique views along with computer-aided detection (CAD). FINDINGS: There are scattered areas of fibroglandular density (ACR BI-RADS breast composition Category b). There are no significant masses, abnormal calcifications, or other abnormalities. MM/MM tomosynthesis screening BI IMPRESSION: No mammographic evidence of malignancy. ASSESSMENT: BI-RADS BI-RADS 1 - Negative RECOMMENDATION: Routine annual mammography screening. 1 year F/U This examination should not preclude the clinical evaluation of a suspicious palpable abnormality. This patient's information was entered into a reminder system with a target due date for their next mammogram. Electronically signed by: Maureen Fiore DO 09/20/2024 12:51 PM EDT Dictated By: Maureen Fiore DO Signed By: <Electronically signed by Maureen Fiore DO in OV> 09/20/24 1251 DD/ 1015 TD/TT: 09/12/24 1037 Harness Maker: [facility] IMG BI PROCEDURES Edited Resu lt - Final * Hepatitis C Antibody with Reflex to HCV, RNA, Quantitative, Real-Time PCR (06/27/2024 11:58 AM EST) Hepatitis C Antibody Nonreactive Nonreactive [facility] Comment:Antibodies to HCV no t detected; does not exclude early acuteHCV infection. Blood Venous blood specimen / Unknown 06/27/2024 11:58 AM EST 06/27/2024 1:30 PM EST [facility] LAB BLOOD ORDERABLES Final Re sult [facility] [address] [place] [address] [phone] * HIV-1/2 Antigen and Antibodies, Fourth Generation, with Reflexes (06/27/2024 11:58 AM EST) HIV AB/AG Nonreactive Nonreactive [facility] Comment:HIV-1 p24 Ag and/or HIV-1/HIV-2 Ab not detected.A test result that is nonreactive does not exclude thepossibility of exposure to or infection with HIV-1 and/orHIV-2. Nonreactive results in this assay for individualswith prior exposure to HIV-1 and/or HIV-2 may be due toantigen and antibody levels that are below the limit ofdetection of this assay.The [employer] HIV Ag/Ab Combo assay result andsupplemental assay results should be interpreted inconjunction with the patient's clinical presentation,history and other laboratory results. If the results areinconsistent with clinical evidence, additional testing issuggested to confirm the result. Blood Venous blood specimen / Unknown 06/27/2024 11:58 AM EST 06/27/2024 1:30 PM EST [facility] LAB BLOOD ORDERABLES Final Re sult Performing Organization Address [facility] de Phone Number [facility] [address] [place] [phone] * Hemoglobin A1c (06/27/2024 11:58 AM EST) Hemoglobin A1c 5.8 <6.0 % [facility] Comment:Hemoglobin A1C Refer ence Range Adults: 4.8 - 6.0 % Non diabetic: < 6.0 % Goal: < 7.0 %Additional Action Suggested: > 8.0 %Note: Hemoglobin A1c results are invalid for patients with abnormal amounts of HbF. Blood transfusions may impact the HbA1c concentration in the patient sample. Estimated Average Glucose 120 mg/dL [facility] Comment:eAG = Estimated ave rage glucose which is %A1C expressed asaverage glucose, using the formula of the M1D-NqbecfhLzohemd Glucose study (ADAG), Diabetes Care, Vol.31,#8,Nov. 2007 Blood Venous blood specimen / Unknown 06/27/2024 11:58 AM EST 06/27/2024 1:30 PM EST [facility] LAB BLOOD ORDERABLES Final Re sult Performing Organization Address [facility] Co de Phone Number [facility] [address] [place] [address] [phone] * (ABNORMAL) Lipid Panel, Standard (06/27/2024 11:58 AM EST) Triglycerides 107 <150 mg/dL [facility] Comment:Desirable Triglyceri de: less than 150 mg/dLBorderline High Triglyceride 150-199 mg/dLHigh Triglyceride: 200-499 mg/dLVery High Triglyceride: greater than or equal to 5OO mg/dL Cholesterol 124 <200 mg/dL [facility] Comment:Desirable Cholestero l: less than 200 mg/dLBorderline High Cholesterol: 200-239 mg/dLHigh Cholesterol: greater than 239 mg/dL LDL Cholesterol Calculated 68 <100 mg/dL [facility] Comment:Desirable LDL: less than 100 mg/dLNear Optimal/Above Optimal LDL: 110- 129 mg/dLBorderline High LDL: 130-159 mg/dLHigh LDL: 160-189 mg/dLVery High LDL: greater than or equal to 190 mg/dL HDL Cholesterol 35(L) >40 mg/dL [facility] Comment:Desirable HDL: great er than 40 mg/dL Note: This HDL assay may give artificially low results in patients with liver disease. Blood Venous blood specimen / Unknown 06/27/2024 11:58 AM EST 06/27/2024 1:30 PM EST [facility] BLANKET MAKER LAB BLOOD ORDERABLES Final Re sult Performing Organization Address City/[facility]/ZIP Co de Phone Number [facility] [address] [place] [address] [phone] from Last 3 Months or Most Recently Relevant to Health Maintenance Insurance [facility] C3 Care Teams Seed Mill Superintendent Relationship Specialty Start Date End Date Viky Sin FNP [address] [place] [phone] PCP - General Family Medicine 06/27/24
== END 2024-10-20 12:12 | disposition home or self-care (01) ==
LOC: HO.HHCL 12:11
PROVIDERS: PCP Registered Nurse; Visit Provider Registered Nurse
DX: D50.0 Iron deficiency anemia secondary to blood loss (chronic) (principal)
CPT/HCPCS: 36415; 85025

== ENCOUNTER 2024-11-18 13:53 | Outpatient (REF) | payer MEDICAID, SELFPAY | END 2024-11-18 13:54 | disposition home or self-care (01) | LOC: HO.LNP 13:53 | PROVIDERS: PCP Registered Nurse; Visit Provider Obstetrics & Gynecology | DX: Z11.51 Encounter for screening for human papillomavirus (HPV) (principal); N93.9 Abnormal uterine and vaginal bleeding, unspecified; N92.0 Excessive and frequent menstruation with regular cycle | CPT/HCPCS: 36415; 84443; 84702; 85027; 87491; 87591; 87626; 88175; 99202 ==

== ENCOUNTER 2024-11-18 13:53 | Outpatient (AMB) | payer MEDICAID, SELFPAY ==
--- NOTE | 2024-11-18 13:59 | MHC.OFFVIS ---
Vital Signs 11/18/24 14:00 Height 5 ft 6 in Weight 212 lb BMI 34.2 BP 106/70 Intake Visit Reasons: New PT Menorrhagia/no not cornell Technical Assistant Required: Yes Technical Assistant Services: Technical Assistant Present (HONORIO) Information Interpreted: clinical only Accompanied by: Allergies No Known Allergies Allergy (Verified 11/18/24 14:03) Is last menstrual period known: Yes (lasted 10 days) Last menstrual period: 10/30/24 HPI Comments Details: Presenting complaining of few months' history of regular heavy menstrual cycles associated with passage of blood clots and pelvic cramping Last co testing was many years ago Last mammogram in 09/21 was BI-RADS 1 [facility] Surgical History H/O LEEP Family History Paternal Grandmother Hypertension Paternal Grandfather Hypertension Social History Household Members: Spouse Housing: Apartment Alcohol intake: never Patient Tobacco Use Status: Never used Tobacco service: No Current occupational status: unemployed Current occupational exposures/hazards: No Sexual orientation: Straight/Heterosexual Gender identity: Female Female Reproductive History Menstrual Age of Menarche: 8 Duration of menses: 8-10 days Date of last menstrual period: 10/30/24 control method: none Total pregnancies: 2 Full term: 2 Number of Living Children: 2 History of abnormal pap smear: Yes (lee 2018 CIN3) History of abnormal mammogram: No Review of Systems Const All systems reviewed & are unremarkable except as noted in HPI and below Card Reports as per HPI Resp Reports as per HPI GI Reports as per HPI and Reports no additional complaints Reports as per HPI Physical Exam Vital Signs: Last Vital Signs BP 106/70 11/18/24 14:00 BMI result Body Mass Index 34.2 Const General: cooperative, healthy appearing and comfortable Chest Chest palpation & inspection: normal inspection of the chest and normal palpation of entire chest wall Breast/axilla inspection: normal inspection of the breasts and normal inspection of the axillae Breast/axilla palpation: normal palpation of the breasts, normal palpation of the axillae and no axillary lymphadenopathy Resp Effort & Inspection: normal respiratory effort Auscultation: clear to auscultation bilaterally Percussion: percussion normal Cardio Palpation: normal PMI Rate: regular rate Rhythm: regular rhythm Heart sounds: no murmurs and no rubs Peripheral pulses: Peripheral pulses 2+ throughout GI Inspection: Yes normal to inspection Palpation (GI): Soft to palpation, nontender, no guarding, not rigid and No hepatosplenomegaly present Percussion: Yes normal to percussion Auscultation: normal bowel sounds Rectal Exam - Female: deferred General: Yes bladder normal to palpation External Female Exam: No lesion Speculum Exam - Vagina: normal appearance of the vagina, normal palpation, normal vaginal discharge and not erythematous Speculum Exam - Cervix: normal appearance of the cervix and normal palpation Bimanual exam- vagina & uterus: normal bimanual exam, normal palpation, uterine size normal, bladder normal to palpation, consistency normal and normal palpation Bimanual Exam- Adnexa, other: normal adnexae, no masses and no tenderness Assessment & Plan Assessment & Plan (1) Abnormal uterine bleeding (AUB): Code(s): N93.9 - Abnormal uterine and vaginal bleeding, unspecified Category: Medical Plan: Co testing done, GC and chlamydia taken CBC, TSH, HCG, and pelvic ultrasound ordered. Discussed with the patient the different causes of abnormal bleeding including thyroid disorders, uterine and ovarian pathology, endometrial hyperplasia, carcinoma and other potential causes. Discussed with the patient the work up including CBC (to r/o anemia), TSH, pelvic Ultrasound, endometrial biopsy to r/o endometrial pathology. All questions answered and the patient verbalized understanding. Instructed the patient to schedule an appointment for an endometrial biopsy in 2 weeks. Orders: Orders Complete Blood Count no Diff Today N93.9 - Abnormal uterine and vaginal bleeding, unspecified US pelvic and transvaginal Today N93.9 - Abnormal uterine and vaginal bleeding, unspecified HCG Quantitative Today N93.9 - Abnormal uterine and vaginal bleeding, unspecified TSH reflex Free T4 Today N93.9 - Abnormal uterine and vaginal bleeding, unspecified Coding Level of Care Code New Pt Level 3 (70966) Diagnoses Abnormal uterine bleeding (AUB) N93.9
[2024-11-18 14:00] VITALS: BP 106/70; BMI 34.2
--- OUTSIDE RECORDS SUMMARY | 2024-11-18 15:07 | XMS_ITS | Clinical Summary ---
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 budesonide-form oterol (Symbicort) 80-4.5 MCG/ACT inhalerIndicati ons:Mild persistent asthma without complication Inhale 2 puffs twie daily. Rinse mouth with water after use to reduce aftertaste and incidence of candidiasis. Do not swallow. 1 each 10/21/19 25 Active ferrous gluconate (Fergon) 324 (38 Fe) MG tabletIndicatio ns:Iron deficiency anemia due to chronic blood loss Take 1 tablet (324 mg) by mouth Once per day. 30 tablet 10/21/19 026 Active budesonide-form oterol (Symbicort) 80-4.5 MCG/ACT [...] by mouth Once per day. 30 tablet 11 10/21/19 25 025 Discontinued(R eorder (will not trigger notification to Pharmacy)) Active Problems No known active problems Encounters Date Type Department Care Team Description 11/18/2024 Orders Only GENERIC EXTERNAL DATA DEPARTMENT Provider, Generic External Data 10/20/2024 11:15 AM EDT Office Visit [address] [address] Viky Sin FNP Menorrhagia with irregular cycle (Primary Dx); Iron deficiency anemia due to chronic blood loss; Mild persistent asthma without complication; Encounter for immunization; Pelvic pain 10/20/2024 Orders Only [facility] [address] [place] [phone] Viky Sin FNP Iron deficiency anemia due to chronic blood loss 10/20/2024 Results Follow-Up [facility] [address] [place] [phone] Viky Sin FNP CBC auto differential 10/20/2024 Travel 10/17/[address] [address] Viky Sin FNP CHART PREP 08/21/[address] [address] Viky Sin FNP Chart prep from Last 3 Months Immunizations Immunization Administration [...] Last Done Comments Family Planning (PISQ) 1998 HPV Vaccines (1 - 3-dose series) 1998 Hepatitis B Vaccines (1 of 3 - 19+ 3-dose series) 2002 Pap Smear 02/05/2004 Cervical Cancer Screening 2013 HPV/Cotest 2013 COVID-19 Vaccine (1 - 2023-2 5 season) 2023 Influenza Vaccine (#1) 2024 Diabetes: Hemoglobin A1C 06/27/2025 06/27/2024 Alcohol/Substance Use Screening 10/20/2025 10/20/2024 Depression Screening 10/20/2025 10/20/2024, 10/20/2024 Disability Screening 10/20/2025 10/20/2024 SDOH Screening 10/20/2025 10/20/2024 Tobacco Screening 10/22/2025 10/22/2024 Mammogram 09/12/2026 09/12/2024 Lipid Panel 06/27/2029 06/27/2024 [...] Name Priority Date/Time Associated Diagnosis Comments CBC Routine 11/18/2024 2:41 PM EDT CBC WITH AUTO DIFFERENTIAL Routine 10/20/2024 12:16 [...] to Health Maintenance Results * (ABNORMAL) CBC (11/18/2024 2:41 PM EDT) White Blood Count 7.7 4.8 - 10.8 X10*3/uL [facility] Red Blood Count 4.59 4.20 - 5.50 X10*6/uL [facility] Hemoglobin 8.7(L) 12.0 - 16.0 g/dl [facility] Hematocrit 31.3(L) 37.0 - 47.0 % [facility] Mean Corpuscular Volume 68.2(L) 80.0 - 98.0 fL [facility] Mean Corpuscular Hemoglobin 19.0(L) 27.0 - 33.0 pg [facility] Mean Corpuscular HGB Conc 27.8(L) 31.0 - 35.0 g/dl [facility] Red Cell Distribution Width 17.1(H) 11.0 - 16.0 % [facility] Platelet Count 339 160 - 400 X10*3/uL [facility] Mean Platelet Volume 9.6 9.4 - 12.3 fL [facility] NRBC Pct Auto 0.0 0.0 - 0.2 /100WBC [facility] NRBC Abs Auto 0.000 0.0 - 0.012 X10*3/uL [facility] 11/18/2024 2:41 PM EDT 11/18/2024 2:41 PM EDT us Generic External Data Provider LAB BLOOD ORDERAB LES Final Result [facility] [address], [place] [phone] * (ABNORMAL) CBC auto differential (10/20/2024 12:16 PM EDT) White Blood Count 9.0 4.8 - 10.8 X10*3/uL [facility] Red Blood Count 4.35 4.20 - 5.50 X10*6/uL [facility] Hemoglobin 8.5(L) 12.0 - 16.0 g/dl [facility] Hematocrit 30.6(L) 37.0 - 47.0 % [facility] Mean Corpuscular Volume 70.3(L) 80.0 - 98.0 fL [facility] Mean Corpuscular Hemoglobin 19.5(L) 27.0 - 33.0 pg [facility] Mean Corpuscular HGB Conc 27.8(L) 31.0 - 35.0 g/dl [facility] Red Cell Distribution Width 16.8(H) 11.0 - 16.0 % [facility] Platelet Count 309 160 - 400 X10*3/uL [facility] Mean Platelet Volume 10.0 9.4 - 12.3 fL [facility] Neutrophils Percent Auto 74.0(H) 45 - 73 % [facility] Imm Gran Pct Auto 0.4 0.0 - 0.4 % [facility] Lymphocytes Percent Auto 15.9(L) 20 - 40 % [facility] Monocytes Percent Auto 7.4 2 - 11 % [facility] Eosinophils Percent Auto 2.0 0 - 4 % [facility] Basophils Percent Auto 0.3 0 - 2 % [facility] NRBC Pct Auto 0.0 0.0 - 0.2 /100WBC [facility] Neutrophils Absolute Auto 6.7 2.0 - 8.3 x10*3/uL [facility] Imm Gran Abs Auto 0.04(H) 0.00 - 0.03 X10*3/uL [facility] Lymphocytes Absolute Auto 1.4 1.2 - 4.9 X10*3/uL [facility] Monocytes Absolute Auto 0.7 0.1 - 1.2 X10*3/uL [facility] Eosinophils Absolute Auto 0.2 0.0 - 0.4 X10*3/uL [facility] Basophils Absolute Auto 0.0 0.0 - 0.2 X10*3/uL [facility] NRBC Abs Auto 0.000 0.0 - 0.012 X10*3/uL [facility] Blood Venous blood specimen / Unknown 10/20/2024 12:16 PM EDT 10/20/2024 12:50 PM EDT [facility] COLD MOLDING PRESS OPERATOR LAB BLOOD ORDERABLES Final Re sult [facility] [address] [facility] [place] [address] [phone] * BI Mammogram Screening Tomosynthesis Bilateral (09/12/2024 10:15 AM EDT) Anatomical Region Laterality Modality Breast Bilateral Mammography 09/12/2024 10:1 5 AM EDT Narrative 09/20/2024 12:53 PM EDT [facility] [address] [place] [address] Mammography Report Signed Patient: Halina Ballard MR#: [id number] : 1985 Acct:[id number] Age/Sex: 39 / F ADM Date: 09/12/24 Loc: MAMMO Attending Dr: Viky PROCTOR Ordering Physician: Viky Sin Results: 1Nega tive Date of Service: 09/12/24 Follow Up: 1 Year From Orig inal Mammogram Procedure(s): MM tomosynthesis screening BI Accession Number(s): [id number] cc: Viky Sin COLD MOLDING PRESS OPERATOR EXAMINATION: MM SCREENING DIGITAL BREAST TOMOSYNTHESIS, BILATERAL [...] 09/20/24 1251 DD/ 1015 TD/TT: 09/12/24 1037 Synthetic Gem Press Operator: Procedure Note Donotuseinterpreter, Image - 09/20/2024 [place] [facility] [address] [place], [place] [address] Mammography Report Signed Patient: Halina Ballard#: [id number] : 1985Acct:[id number] Age/Sex: 39 / FADM Date: 09/12/24 Loc: [place] Attending Dr: Viky PROCTOR Ordering Physician: Viky Sin FNPResults: 1Nega tive Date of Service: 09/12/24Follow Up: 1 Year From Orig ina Mammogram Procedure(s): MM tomosynthesis screening BI Accession Number(s): [id number] cc: Viky Sin [facility] EXAMINATION: MM SCREENING DIGITAL BREAST TOMOSYNTHESIS, BILATERAL [...] 09/20/24 1251 DD/ 1015 TD/TT: 09/12/24 1037 Synthetic Gem Press Operator: [facility] IMG BI PROCEDURES Edited Resu lt - Final * Hepatitis C Antibody with Reflex to HCV, RNA, Quantitative, Real-Time PCR (06/27/2024 11:58 AM EST) Hepatitis C Antibody Nonreactive Nonreactive [facility] Comment:Antibodies to HCV no t detected; does not exclude early acuteHCV infection. Blood Venous blood specimen / Unknown 06/27/2024 11:58 AM EST 06/27/2024 1:30 PM EST [facility] LAB BLOOD ORDERABLES Final Re sult [facility] [address] [place] [address] [phone] * HIV-1/2 Antigen and Antibodies, Fourth Generation, with Reflexes (06/27/2024 11:58 AM EST) HIV AB/AG Nonreactive Nonreactive [facility] Comment:HIV-1 p24 Ag and/or HIV-1/HIV-2 Ab not detected.A test result that is nonreactive does not exclude thepossibility of exposure to or infection with HIV-1 and/orHIV-2. Nonreactive results in this assay for individualswith prior exposure to HIV-1 and/or HIV-2 may be due toantigen and antibody levels that are below the limit ofdetection of this assay.The Flo Water HIV Ag/Ab Combo assay result andsupplemental assay results should be interpreted inconjunction with the patient's clinical presentation,history and other laboratory results. If the results areinconsistent with clinical evidence, additional testing issuggested to confirm the result. Blood Venous blood specimen / Unknown 06/27/2024 11:58 AM EST 06/27/2024 1:30 PM EST [facility] LAB BLOOD ORDERABLES Final Re sult [facility] [address] [place] [phone] * Hemoglobin A1c (06/27/2024 11:58 AM EST) Hemoglobin A1c 5.8 <6.0 % [facility] Comment:Hemoglobin A1C Refer ence Range Adults: 4.8 - 6.0 % Non diabetic: < 6.0 % Goal: < 7.0 %Additional Action Suggested: > 8.0 %Note: Hemoglobin A1c results are invalid for patients with abnormal amounts of HbF. Blood transfusions may impact the HbA1c concentration in the patient sample. Estimated Average Glucose 120 mg/dL [facility] Comment:eAG = Estimated ave rage glucose which is %A1C expressed asaverage glucose, using the formula of the [id number]-[id number] Glucose study (ADAG), Diabetes Care, Vol.31,#8,Nov. 2007 Blood Venous blood specimen / Unknown 06/27/2024 11:58 AM EST 06/27/2024 1:30 PM EST [facility] LAB BLOOD ORDERABLES Final Re sult Performing Organization Address [facility] Co de Phone Number [facility] [address] [place] [phone] * (ABNORMAL) Lipid Panel, Standard (06/27/2024 11:58 AM EST) Triglycerides 107 <150 mg/dL [facility] Comment:Desirable Triglyceri de: less than 150 mg/dLBorderline High Triglyceride 150-199 mg/dLHigh Triglyceride: 200-499 mg/dLVery High Triglyceride: greater than or equal to 5OO mg/dL Cholesterol 124 <200 mg/dL [facility] Comment:Desirable Cholestero l: less than 200 mg/dLBorderline High Cholesterol: 200-239 mg/dLHigh Cholesterol: greater than 239 mg/dL LDL Cholesterol Calculated 68 <100 mg/dL [facility] Comment:Desirable LDL: less than 100 mg/dLNear Optimal/Above Optimal LDL: 110- 129 mg/dLBorderline High LDL: 130-159 mg/dLHigh LDL: 160-189 mg/dLVery High LDL: greater than or equal to 190 mg/dL HDL Cholesterol 35(L) >40 mg/dL [facility] Comment:Desirable HDL: great er than 40 mg/dL Note: This HDL assay may give artificially low results in patients with liver disease. Blood Venous blood specimen / Unknown 06/27/2024 11:58 AM EST 06/27/2024 1:30 PM EST [facility] LAB BLOOD ORDERABLES Final Re sult Performing Organization Address [facility]/ZIP Co de Phone Number [facility] [address] [place] [phone] from Last 3 Months or Most Recently Relevant to Health Maintenance Insurance [facility] C3 Care Teams Paginator Relationship Specialty Start Date End Date Viky Sin FNP [address] [place] [phone] PCP - General Family Medicine 06/27/24
--- OUTSIDE RECORDS SUMMARY | 2024-11-18 15:07 | XMS_ITS | Clinical Summary ---
Author Organization [facility] Address [address] [place] [address] Care Team Providers Care Scale Technician Name Role Phone Unavailable Primary Care Provider [...] diskus inhalerIndicatio ns:Moderate persistent asthma without complication ([facility]) Inhale 1 Puff into the lungs 2 [...] Diagnosed Date Moderate persistent asthma without complication ([facility]) 07/12/2019 History of vitamin D deficiency 07/12/2019 Chronic gastritis without bleeding 07/12/2019 Insomnia due to other mental disorder 03/29/2019 Heartburn 03/29/2019 Multiple joint pain 03/29/2019 Overview (03/29/2019): Negative RF in Constipation 03/29/2019 Vitamin D deficiency 03/29/2019 Severe episode of recurrent major depressive disorder, without psychotic features ([facility]) 12/17/2018 PTSD (post-traumatic stress disorder) 12/17/2018 History [...] 88 07/11/2019 1:09 PM EDT Temperature 36.8 C (98.3 F) 07/11/2019 1:09 PM EDT Respiratory Rate 16 07/11/2019 1:09 PM EDT Oxygen Saturation 99% 07/11/2019 1:09 PM EDT Inhaled Oxygen Concentration - - Weight 95.3 kg (210 lb) 07/11/2019 1:09 PM EDT Height 162.6 cm (5' 4 ) 07/11/2019 1:09 PM EDT Body Mass Index 36.05 07/11/2019 1:09 PM EDT Plan of Treatment Not on file Insurance [facility] [facility] [place] MEDICAID DENTAL [facility] DENTAL [place] [id number]
--- OUTSIDE RECORDS SUMMARY | 2024-11-18 15:07 | XMS_ITS | Clinical Summary ---
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 Name Role Phone Unavailable Primary Care Provider [...] Cervical Cancer Screening: P ap Smear 02/05/2004 HIV Screening 04/02/2022 Hepatitis C Screening 04/02/2022 Social Influencers of Health Screening 04/02/2022 COVID-19 Vaccine ( - 2023-2 5 season) 2023 Depression Screening 04/30/2024 Influenza Vaccine (#1) 2024 HIB Vaccines Aged Out No longer [...] 5 Years) and At-Risk Patients (6 to 49 Years) Aged Out No longer eligible b ased on patient's age to complete this topic RSV Immunization Patients Un carie 20 months Aged Out No longer eligible b ased on patient's age to complete this topic Varicella Vaccines Aged Out No longer eligible based on patient's age to complete this topic
== END 2024-11-18 14:22 | disposition home or self-care (01) ==
LOC: HO.HWS 13:53
PROVIDERS: PCP Registered Nurse; Visit Provider Obstetrics & Gynecology
DX: N93.9 Abnormal uterine and vaginal bleeding, unspecified (principal)
CPT/HCPCS: 99203

== ENCOUNTER 2024-11-18 14:28 | Outpatient (REF) | payer MEDICAID, SELFPAY ==
[2024-11-18 15:03] LABS: Hematocrit 31.3 % (37.0-47.0); Hemoglobin 8.7 g/dl (12.0-16.0); Mean Corpuscular HGB Conc 27.8 g/dl (31.0-35.0); Mean Corpuscular Hemoglobin 19.0 pg (27.0-33.0); Mean Corpuscular Volume 68.2 fL (80.0-98.0); NRBC Abs Auto 0.000 X10*3/uL (0.0-0.012); NRBC Pct Auto 0.0 /100WBC (0.0-0.2); Platelet Count 339 X10*3/uL (160-400); Red Blood Count 4.59 X10*6/uL (4.20-5.50); White Blood Count 7.7 X10*3/uL (4.8-10.8)
[2024-11-18 17:55] LABS: CT PCR NOT DETECTED (Not Detect.); NG PCR NOT DETECTED (Not Detect.)
== END 2024-11-18 14:29 | disposition home or self-care (01) ==
LOC: HO.LAB 14:28
PROVIDERS: PCP Registered Nurse; Visit Provider Obstetrics & Gynecology
DX: Z13.89 Encounter for screening for other disorder (principal)
CPT/HCPCS: 36415; 84443; 84702; 85027; 87491; 87591